=== PATIENT | female | born 1950 | race Caucasian/White ===

== ENCOUNTER 2018-06-17 14:31 | Emergency (ER) | payer SELFPAY | END 2018-06-17 15:07 | disposition home or self-care (01) | LOC: ERS 14:31 | DX: G62.9 Polyneuropathy, unspecified (principal); F17.210 Nicotine dependence, cigarettes, uncomplicated | CPT/HCPCS: 99283 ==

== ENCOUNTER 2018-09-09 12:06 | Emergency (ER) | payer SELFPAY ==
[2018-09-09 13:11] LABS: #Lymphocytes 0.5 thou/uL (1.20-3.40); #Monocytes 0.3 thou/uL (0.11-0.59); #Neutrophils 4.5 thou/uL (1.40-6.50); %Basophils 0.4 % (0.0-1.0); %Eosinophils 0.1 % (0.0-10.0); %Lymphocytes 9.3 % (21.0-51.0); %Monocytes 5.1 % (0.0-10.0); %Neutrophils 85.1 % (42.0-75.0); Hemoglobin 13.4 g/dL (12.0-16.0); Mean Corpuscular Hemoglobin 32.5 pg (27.0-31.0); Mean Corpuscular Volume 95.8 fL (78.0-98.0); Mean Platelet Volume 6.6 fL (7.4-10.4); Platelet Count 377 thou/uL (130-400); RBC Distribution Width 14.7 % (11.5-14.5); Red Blood Cell (RBC) Count 4.11 mill/uL (4.20-5.40); White Blood Cell (WBC) Count 5.3 thou/uL (4.8-10.8)
[2018-09-09] MEDS ORDERED: Morphine 4 MG/ML VIAL ONE ×2 (13:26→13:44)
[2018-09-09] MEDS ORDERED: Nitroglycerin 0.4 MG TAB 1 EACH ONE (13:33)
[2018-09-09 13:37] LABS: ALT (SGPT) 9 U/L (8-55); AST (SGOT) 14 U/L (5-34); Albumin 3.9 g/dL (3.4-4.8); Alkaline Phosphatase 72 U/L (40-150); Anion Gap 16 mmol/L (10-20); BUN (Urea Nitrogen) 18 mg/dL (9.8-20.1); Bilirubin, Total 0.5 mg/dL (0.2-1.2); CK (CPK) 35 U/L (29-168); Calc. Creatinine Clearance 0 mL/min (70-130); Calcium 10.7 mg/dL (7.8-10.44); Carbon Dioxide 21 mmol/L (23-31); Chloride 105 mmol/L (98-107); Estimated GFR-MDRD 55; Globulin 2.7 g/dL (2.4-3.5); Glucose 137 mg/dL (80-115); Lipase 25 U/L (8-78); Potassium 4.3 mmol/L (3.5-5.1); Protein, Total 6.6 g/dL (6.0-8.3); Sodium 138 mmol/L (136-145)
[2018-09-09] MEDS ORDERED: ISOVUE-370 76%-LOCM 1 ML ONE (13:41)
--- NOTE | 2018-09-09 14:31 | RAD ---
PORTABLE AP CHEST: Date: 09/09/18 HISTORY: Chest pain. COMPARISON: None available. FINDINGS: There is mild elevation of the left hemidiaphragm. Cardiac silhouette and pulmonary vasculature are w ithin normal limits. Linear densities are seen at the left lung base, which may be related to mild at electasis. There is mild patient rotation to the left, but no consolidation is seen and lungs are oth erwise clear. Degenerative changes are noted in the spine. IMPRESSION: No acute cardiopulmonary process. POS: INGRID
[2018-09-09] MEDS ORDERED: Piperacillin/Tazobactam 4.5 GM VIAL ONE (15:52)
[2018-09-09] MEDS ORDERED: Fentanyl 100 MCG/2 ML VIAL ONE (15:52)
--- NOTE | 2018-09-09 15:58 | CT ---
CTA CHEST WITH CONTRAST AND 3D VOLUME RENDERING: Date: 09/09/18 CLINICAL HISTORY: Chest pain. FINDINGS: There is no large, central pulmonary embolus identified. The thoracic aorta is nonaneurysmal. There i s abnormal opacification involving the left lower lobe bronchial tree which could relate to inspissat ed secretions. There is mild interstitial and ground-glass opacity of the adjacent left lower lobe pa renchyma, as well. No effusion or pneumothorax. There is evidence of free air incompletely visualized . There is dissection of air into the mediastinum as well. Marked thickening of the distal esophageal wall. There is pulmonary emphysema. Osseous degenerative changes are present. There is incidental note of a hypodensity of the spleen, incompletely evaluated. IMPRESSION: 1. Abnormal air density indicative of pneumoperitoneum with involvement of the imaged mediastinum as well. This does approximate a region of significant abnormal wall thickening of the distal esophagus , and therefore this could relate to erosion of an esophageal mass; however, the etiology of the free air is not definitively discerned on the basis of this CT chest exam. Recommend surgical consultatio n. 2. No pulmonary embolus. 3. Abnormal opacification of left lower lobe bronchi. This favors inspissated/inhaled secretions. An adjacent multifocal interstitial opacity of the left lower lobe may relate to associated bronchopneu monia. Telephone call findings placed to ER physician, Corey Alcantara, at 1434 hours on 09/09/18. CODE CR. POS: TPC
== END 2018-09-09 16:16 | disposition short-term general hospital (02) ==
LOC: ERS 12:06
DX: J98.2 Interstitial emphysema (principal); K66.9 Disorder of peritoneum, unspecified; K22.8 Other specified diseases of esophagus; G62.9 Polyneuropathy, unspecified; F17.210 Nicotine dependence, cigarettes, uncomplicated
CPT/HCPCS: 36415; 71045; 71275; 80053; 82550; 83690; 83880; 84484; 85025; 85379; 93005; 96361; 96374; 96375; 99292; J2270; J2543; J3010; Q9966

== ENCOUNTER 2018-09-29 09:54 | Observation (INO) | payer MEDICARE, SELFPAY ==
[2018-09-29 11:14] LABS: #Lymphocytes 1.1 thou/uL (1.20-3.40); #Monocytes 0.6 thou/uL (0.11-0.59); #Neutrophils 5.3 thou/uL (1.40-6.50); %Basophils 0.6 % (0.0-1.0); %Eosinophils 0.4 % (0.0-10.0); %Lymphocytes 15.5 % (21.0-51.0); %Monocytes 8.9 % (0.0-10.0); %Neutrophils 74.6 % (42.0-75.0); Hemoglobin 10.2 g/dL (12.0-16.0); Mean Corpuscular HGB CONC 32.5 g/dL (32.0-36.0); Mean Corpuscular Hemoglobin 30.2 pg (27.0-31.0); Mean Corpuscular Volume 92.9 fL (78.0-98.0); Mean Platelet Volume 6.3 fL (7.4-10.4); Platelet Count 476 thou/uL (130-400); RBC Distribution Width 15.7 % (11.5-14.5); Red Blood Cell (RBC) Count 3.36 mill/uL (4.20-5.40); White Blood Cell (WBC) Count 7.1 thou/uL (4.8-10.8)
[2018-09-29 11:42] LABS: ALT (SGPT) 8 U/L (8-55); AST (SGOT) 15 U/L (5-34); Albumin 3.5 g/dL (3.4-4.8); Alkaline Phosphatase 93 U/L (40-150); Anion Gap 16 mmol/L (10-20); BUN (Urea Nitrogen) 13 mg/dL (9.8-20.1); Bilirubin, Total 0.5 mg/dL (0.2-1.2); Calc. Creatinine Clearance 0 mL/min (70-130); Calcium 9.1 mg/dL (7.8-10.44); Carbon Dioxide 22 mmol/L (23-31); Chloride 104 mmol/L (98-107); Estimated GFR-MDRD 56; Globulin 3.5 g/dL (2.4-3.5); Glucose 108 mg/dL (80-115); Lipase 56 U/L (8-78); Potassium 3.9 mmol/L (3.5-5.1); Sodium 138 mmol/L (136-145)
[2018-09-29 12:00] LABS: CKMB 0.6 ng/mL (0-6.6)
--- NOTE | 2018-09-29 12:41 | CT ---
Exam: CTA of the chest HISTORY: Shortness of breath COMPARISON: 09/09/2018 TECHNIQUE: Multiple contiguous axial images were obtained a CTA of the chest with contrast per pulmon spring embolism protocol. 3-D oblique MIP reformats and direct coronal reformats were performed. FINDINGS: HEART: Normal in size without focal cardiac abnormality. PULMONARY ARTERIES: Normal in caliber without filling defects to suggest pulmonary emboli. MEDIASTINUM: No hilar or mediastinal lymphadenopathy. LUNGS: No focal infiltrates or masses. PLEURAL SPACE: There is a small left pleural effusion with adjacent atelectasis.. CHEST WALL SOFT TISSUES: Unremarkable VISUALIZED OSSEOUS STRUCTURES: Degenerative changes are seen in the spine. VISUALIZED SUBDIAPHRAGMATIC STRUCTURES: There is hypodensity in the posterior aspect of the spleen ex tending to the splenic hilum. Fluid is seen surrounding the spleen and this may represent a splenic laceration. The other visualized subdiaphragmatic structures are unremarkable. IMPRESSION: 1. No evidence of pulmonary thromboembolism 2. Left pleural effusion with adjacent atelectasis 3. Splenic laceration
[2018-09-29] MEDS ORDERED: Nitroglycerin 2% Ointment 1 INCH/1 GM Packet ONE (13:26)
[2018-09-29] MEDS ORDERED: Aspirin Chewable 81 MG TAB ONE (13:26)
--- NOTE | 2018-09-29 15:41 | HP ---
[facility] [place] Call Admission for [facility]. Referred to [facility] Hospitalist Service by [facility] for chest pain. The patient with a recent esophageal rupture, status post transfer to [facility] for surgical revision, came into the emergency room to have her sofia out, and the sofia were coming out. She said by the way, I have been having chest pain. This chest pain has been going on for a few days. It comes and goes. Lasts maybe 5 minutes, occurs 25 to 40 times a day. She states it feels like her heart is being squeezed by hand from inside. She has no nausea and no real shortness of breath. No sweats. No radiation. PAST MEDICAL HISTORY: Chronic pain from 3 failed back surgery, first in 1995, last in 2003. She has also had a hysterectomy, and as mentioned before, a recent esophageal repair. CURRENT MEDICATIONS: She takes ibuprofen for her back pain, but currently is taking nothing per the request of her [facility] doctors. ALLERGIES: SHE IS ALLERGIC TO ELAVIL. SHE STATES IT GIVES HER HIVES. FAMILY HISTORY: Father with diabetes and coronary artery disease. Mother with coronary artery disease. SOCIAL HISTORY: . Next of kin, Yudith Chapman. The patient requests to be DNAR. She smokes about a pack a day. Her alcohol history is equivocal, but from our old chart it states she has 5 drinks a day. REVIEW OF SYSTEMS: GENERAL: She says she has migraine headaches daily. She has some visual disturbance with the headaches. She has dizziness occasionally which resolves quickly. No history of fainting. She has occasional blurred vision. Occasional flashing lights in her vision with headaches. Both of these occur with headaches. EAR, NOSE, AND THROAT: No ear pain or drainage. No nasal bleeding. No trouble swallowing currently. CARDIAC: See present illness. No pressure chest pain or orthopnea. RESPIRATIONS: She has occasional smoker's cough. No wheezing or asthma. GASTROINTESTINAL: She has had a little nausea past few days. No vomiting. No abdominal pain. No diarrhea. GENITOURINARY: No hematuria or dysuria. MUSCULOSKELETAL: She relates pain in her thighs bilaterally, relates to her back problem. No history of swelling. NEUROLOGICAL: No strokes, seizures, or focal weakness. PSYCHIATRIC: She says that her doctor told her she was nuts one time, but she went to a psychiatrist who told her she was no crazy than she was (no comment). SKIN: No bruises, bleeding, or rash. HEME/LYMPH: No tender or swollen lymph nodes in the axilla, inguinal, or cervical area. PHYSICAL EXAMINATION: VITAL SIGNS: Blood pressure 142/93, pulse 95, respirations 17. She relates her chest pain is 8 to 10, but her affect demonstrates less than one chest pain, O2 saturation 97 on room air. HEENT: Examination of her head, eyes, ears, nose, and throat reveals pupils are equal, round, and reactive to light. Extraocular movements are intact. Sclerae are white. Tympanic membranes clear. Nose clear. Oral mucous membranes are wet. Dental hygiene is adequate. She has best I can guess about half of her original teeth. NECK: No jugular venous distention, adenopathy, or thyromegaly. CHEST: Clear to auscultation and percussion. HEART: Regular rate and rhythm. First and second heart sounds clear. No murmurs or gallops. ABDOMEN: Soft. Bowel sounds are normal. There is no hepatosplenomegaly. No mass. No rebound. No bruits. EXTREMITIES: Reveal no cyanosis, clubbing, or edema. PULSES: Carotid, radial, femoral, and dorsalis pedis pulses intact. SKIN: Warm and dry without bruises or rash. HEME/LYMPH: No tender or swollen lymph nodes in the axilla or inguinal cervical area. Deep tendon reflexes, not tested. Moves all extremities. Cranial nerves 2 through 12 are intact. DIAGNOSTIC DATA: EKG, mild sinus tachycardia, otherwise normal, reviewed by me. Chest x-ray reveals no cardiomegaly, CHF, infiltrate, reviewed by me. CT scan of the chest done because of recent surgery, esophageal rupture, etc. Reveals no evidence of pulmonary thromboembolism. Mild left pleural effusion. Question of a splenic laceration. Comprehensive metabolic profile unremarkable. Troponin 0.033. CBC; white cell count 7.1, hemoglobin 10.2, platelet count 476,000. ADMITTING DIAGNOSES: 1. Chest pain. 2. Question of splenic laceration, post-esophageal repair, which was apparently an abdominal thoracic procedure, and chronic back pain. PLAN: She has received aspirin, serial cardiac enzymes, probable stress test. The evidence for splenic laceration will have to be reviewed. Probable General Surgery consult. Job ID: [id number]
[2018-09-29 16:19] VITALS: BMI 19.9
[2018-09-29] MEDS ORDERED: Ondansetron ODT 4 MG TAB SL PRN (16:45)
[2018-09-29] MEDS ORDERED: Acetaminophen 325 MG TAB PO PRN (16:45)
[2018-09-29] MEDS ORDERED: Ondansetron PF 4 MG/2 ML Vial IVP PRN (16:45)
--- NOTE | 2018-09-29 16:48 | PDOC.EVN ---
Event Note - Event Note Event Note: discussed recent surgery and CT scan of abd with general surgery, considered safe for stress test
[2018-09-29] MEDS ORDERED: Cyclobenzaprine 10 MG TAB PO PRN (21:11)
[2018-09-29] MEDS ORDERED: Gabapentin 300 MG CAP PO SCH (21:30)
[2018-09-30] MEDS ORDERED: Sodium Chloride 0.65% Nasal 44 ML BOT EA NARE PRN (08:45)
[2018-09-30] MEDS ORDERED: Ondansetron PF 4 MG/2 ML Vial IVP PRN (08:45)
[2018-09-30] MEDS ORDERED: hydrALAZINE 20 MG/ML VIAL SLOW IVP PRN (08:45)
[2018-09-30] MEDS ORDERED: Artificial Tears 18 DROP/0.9 ML EA EYE PRN (08:45)
[2018-09-30] MEDS ORDERED: traMADol HCl 50 MG TAB PO PRN (08:45)
[2018-09-30] MEDS ORDERED: Eucerin (Mineral Oil/Petrolatum,White) 30 gm Jar TOP PRN (08:45)
[2018-09-30] MEDS ORDERED: Ondansetron ODT 4 MG TAB SL PRN (08:45)
[2018-09-30] MEDS ORDERED: Cepastat Lozenges 1 LOZ PO PRN (08:45)
[2018-09-30] MEDS ORDERED: Zolpidem Tartrate 5 MG TAB PO PRN (08:45)
[2018-09-30] MEDS ORDERED: Diabetic Tussin 200 MG/10 ML UDCUP PO PRN (08:45)
[2018-09-30] MEDS ORDERED: Loratadine 10 MG TAB PO PRN (08:45)
[2018-09-30] MEDS ORDERED: Loperamide HCl 2 MG CAP PO PRN (08:45)
[2018-09-30] MEDS ORDERED: HYDROcodone/Acetaminophen 5/325 mg Tablet PO PRN (08:45)
[2018-09-30] MEDS ORDERED: Docusate 100 MG CAP PO SCH (09:00)
[2018-09-30] MEDS ORDERED: Aspirin 325 mg Enteric Coated Tablet PO SCH (09:00)
[2018-09-30] MEDS: Gabapentin 300 MG CAP PO SCH ×2 (10:38→12:53)
--- NOTE | 2018-09-30 12:38 | PDOC.PN ---
- Subjective Encounter Start Date: 09/30/18 Encounter Start Time: 07:40 Patient seen and examined. No new complaints. No overnight events - Objective Resuscitation Status - Order Detail: 09/29/18 14:01 Resuscitation Status Routine Resuscitation Status: DNAR: NO Resuscitation Discussed with: patient Additional comments: next of kin-sister Yudith HUMPHREY Reviewed: Yes Vital Signs & Weight: Vital Signs (12 hours) Temp Pulse Resp BP BP Pulse Ox 09/30/18 07:38 97.4 F L 86 16 128/73 95 09/30/18 06:10 96 09/30/18 04:11 98.0 F 85 16 131/76 95 Weight Weight 131 lb 4 oz I&O: 09/29/18 09/30/18 10/01/18 06:59 06:59 06:59 Intake Total 720 Output Total 350 Balance 370 Result Diagrams: 09/29/18 11:04 09/29/18 11:04 EKG Reviewed by me: Yes Phys Exam - Physical Examination Constitutional: NAD HEENT: PERRLA, moist MMs, sclera anicteric Neck: no JVD, supple Respiratory: no wheezing, no rales, no rhonchi Cardiovascular: RRR, no significant murmur, no rub Gastrointestinal: soft, non-tender, no distention, positive bowel sounds Musculoskeletal: no edema, pulses present Neurological: non-focal, normal sensation, moves all 4 limbs Lymphatic: no nodes Psychiatric: normal affect, A&O x 3 Skin: no rash, normal turgor Dx/Plan (1) Chest pain Code(s): R07.9 - CHEST PAIN, UNSPECIFIED Status: Acute (2) Laceration of spleen Code(s): S36.039A - UNSPECIFIED LACERATION OF SPLEEN, INITIAL ENCOUNTER Status : Acute (3) Anemia, normocytic normochromic Code(s): D64.9 - ANEMIA, UNSPECIFIED Status: Chronic (4) GERD (gastroesophageal reflux disease) Code(s): K21.9 - GASTRO-ESOPHAGEAL REFLUX DISEASE WITHOUT ESOPHAGITIS Status: Chronic - Plan cont current plan of care * medication reviewed as below * symptomatic treatment * stress test result pending. Review of Systems - Review of Systems ENT: negative: Ear Pain, Ear Discharge, Nose Pain, Nose Discharge, Nose Congestion, Mouth Pain, Mouth Swelling, Throat Pain, Throat Swelling, Other Respiratory: negative: Cough, Dry, Shortness of Breath, Hemoptysis, SOB with Excertion, Pleuritic Pain, Sputum, Wheezing Cardiovascular: negative: chest pain, palpitations, orthopnea, paroxysmal nocturnal dyspnea, edema, light headedness, other Gastrointestinal: negative: Nausea, Vomiting, Abdominal Pain, Diarrhea, Constipation, Melena, Hematochezia, Other Genitourinary: negative: Dysuria, Frequency, Incontinence, Hematuria, Retention , Other Musculoskeletal: negative: Neck Pain, Shoulder Pain, Arm Pain, Back Pain, Hand Pain, Leg Pain, Foot Pain, Other - Medications/Allergies Allergies/Adverse Reactions: Allergies Allergy/AdvReac Type Severity Reaction Status Date / Time amitriptyline [From [facility]] Allergy Verified 09/29/18 14:45 Medications: Current Medications Hydrocodone Bitart/Acetaminophen ([place] 5/325) 1 tab PO Q4H PRN PRN Reason: Moderate Pain (4-6) Artificial Tears (Tears Naturale) 2 drop EA EYE PRN PRN PRN Reason: Dry Eyes Aspirin (Ecotrin) 325 mg PO DAILY [facility] Last Admin: 09/30/18 10:38 Dose: Not Given Cyclobenzaprine HCl (Flexeril) 5 mg PO Q6H PRN PRN Reason: .PAIN Docusate Sodium (Colace) 100 mg PO BID [facility] Last Admin: 09/30/18 10:38 Dose: Not Given Gabapentin (Neurontin) 300 mg PO TID [facility] Last Admin: 09/30/18 10:38 Dose: Not Given Guaifenesin (Robitussin Sf) 200 mg PO Q4H PRN PRN Reason: Cough Hydralazine HCl (Apresoline) 10 mg SLOW IVP Q4H PRN PRN Reason: SBP > 180 and HR < 70 Loperamide HCl (Imodium) 2 mg PO PRN PRN PRN Reason: Diarrhea/Loose Stools Loratadine (Claritin) 10 mg PO DAILYPRN PRN PRN Reason: Sinus Symptoms Mineral Oil/White Petrolatum (Eucerin Cream) 0 gm TOP BIDPRN PRN PRN Reason: Dry Skin Ondansetron HCl (Zofran Odt) 4 mg SL Q6H PRN PRN Reason: Nausea/Vomiting Ondansetron HCl (Zofran) 4 mg IVP Q6H PRN PRN Reason: Nausea/Vomiting Pantoprazole Sodium (Protonix) 40 mg PO BID [facility] Last Admin: 09/30/18 10:38 Dose: Not Given Sodium Chloride ([place] Nasal [place] 0.65%) 0 ml EA NARE QIDPRN PRN PRN Reason: Nasal Congestion Throat Lozenges (Cepastat Lozenges) 1 freddy PO Q2H PRN PRN Reason: Sore Throat Tramadol HCl (Ultram) 50 mg PO Q6H PRN PRN Reason: Mild Pain (1-3) Zolpidem Tartrate (Ambien) 5 mg PO HSPRN PRN PRN Reason: Insomnia
--- NOTE | 2018-09-30 13:36 | NM ---
NM Cardiac Stress W EF WF HISTORY: Chest pain TECHNIQUE: A myocardial perfusion scan was performed using the single isotope 1 day protocol with rosario hnetium 99m sestamibi. 10 mCi was injected intravenously for the rest exam followed by 30 mCi for the stress study. Pharmacologic stress with adenosine was monitored and interpreted by Lukasz Finch NP FINDINGS: Homogeneous tracer distribution is seen in the myocardial segments on stress and rest image s without fixed or reversible defects. Gated SPECT LVEF: 62 % Wall motion exam: Normal IMPRESSION: Normal myocardial perfusion scan.
--- NOTE | 2018-09-30 14:10 | DIS ---
DATE OF ADMISSION: 09/29/2018 DATE OF DISCHARGE: 09/30/2018 PRIMARY CARE PHYSICIAN: [facility] Call admission. DISCHARGE DISPOSITION: Home. PRIMARY DISCHARGE DIAGNOSES: Chest pain ruled out, acute coronary syndrome. SECONDARY DISCHARGE DIAGNOSES: Gastroesophageal reflux disease, normocytic normochromic anemia. PRIMARY PROCEDURE/OPERATION: None. RADIOLOGICAL INVESTIGATION: CT angiography negative for PE, but it showed a suspected finding of splenic laceration. Stress test was negative. SIGNIFICANT LABORATORY DATA: WBC 7.1, hemoglobin 10.2, platelet 476. Sodium 138, potassium 3.9, BUN 13, creatinine 0.99, calcium 9.1. Troponin 0.025. LFT normal. Lipase 56. DISCHARGE MEDICATION: 1. Colace 100 mg b.i.d. 2. Gabapentin 300 mg t.i.d. 3. Protonix 40 mg b.i.d. 4. Tramadol 50 mg q.6 hourly p.r.n. 5. Flexeril 5 mg q.6 hourly p.r.n. CONTRAINDICATION: None. CODE STATUS: DNR. INPATIENT SCREENING NURSE: None. ALLERGY: Amitriptyline. DISCHARGE PLAN: Posthospital, the patient will follow up with primary care physician in one week. HOSPITAL COURSE: A 68-year-old female with above-mentioned medical problem, who was admitted by Dr. Thompson. Please see his H and P for further details. The patient presented with chest pain. Her chest pain description was atypical. Her D-dimer was elevated and that is why CT angiography PE protocol was done, which was negative for PE. There was suspected finding of a splenic laceration, but clinically this patient was not having any pain in left upper quadrant and she was not complaining any abdominal discomfort. Her physical examination was completely benign. We did stress test and that came back normal. Couple of troponin was indeterminate, but 3rd troponin was negative. The patient was subsequently chest pain free and her telemetry remained unremarkable. The patient was seen and examined at bedside today. Please see my progress note from today for further details. She is medically stable for discharge today and so we will make appointment with primary care physician. Job ID: [id number]
[2018-09-30 15:59] VITALS: BP 154/84; TEMP 97.7
[2018-09-30] MEDS ORDERED: ADENOSINE 60 MG/20 ML VIAL ONE (16:38)
== END 2018-09-30 16:20 | disposition home or self-care (01) ==
LOC: ERS 09:54 → ERHOLD 14:00 → 2SW 16:06
PROVIDERS: ADMIT Internal Medicine; ATTEND Internal Medicine
DX: R07.89 Other chest pain (principal); K21.9 Gastro-esophageal reflux disease without esophagitis; D64.9 Anemia, unspecified; F17.210 Nicotine dependence, cigarettes, uncomplicated; S36.039A Unspecified laceration of spleen, initial encounter; Z88.8 Allergy status to other drugs, medicaments and biological substances; Z66 Do not resuscitate; Z98.890 Other specified postprocedural states
CPT/HCPCS: 71275; 78452; 80053; 82553; 83690; 84484 ×2; 85025; 93005; 93017; 94760 ×2; 99285; A9500; G0378 ×2; 36415; J0153

== ENCOUNTER 2020-04-16 13:16 | Emergency (ER) | payer MEDICARE ==
[2020-04-16] MEDS ORDERED: Ibuprofen 200 MG TAB ONE (13:43)
== END 2020-04-16 14:34 | disposition home or self-care (01) ==
LOC: ERS 13:16
DX: I10 Essential (primary) hypertension (principal); M54.9 Dorsalgia, unspecified; Z71.6 Tobacco abuse counseling; F17.210 Nicotine dependence, cigarettes, uncomplicated; Z79.899 Other long term (current) drug therapy
CPT/HCPCS: 93005; 99406

== ENCOUNTER 2020-12-10 08:10 | Inpatient (IN) | payer MEDICARE ==
[2020-12-10] MEDS ORDERED: Ondansetron PF 4 MG/2 ML Vial ONE (09:28)
[2020-12-10] MEDS ORDERED: Morphine 4 MG/ML VIAL ONE ×2 (09:28→09:51)
[2020-12-10] MEDS ORDERED: Ondansetron ODT 4 MG TAB ONE (09:51)
[2020-12-10 10:03] LABS: #Eosinphils 0.1 thou/uL (0.0-0.7); #Lymphocytes 1.2 thou/uL (1.20-3.40); #Monocytes 0.4 thou/uL (0.11-0.59); #Neutrophils 5.1 thou/uL (1.40-6.50); %Basophils 0.6 % (0.0-1.0); %Eosinophils 0.7 % (0.0-10.0); %Lymphocytes 18.1 % (21.0-51.0); %Monocytes 6.5 % (0.0-10.0); %Neutrophils 74.2 % (42.0-75.0); Hemoglobin 16.4 g/dL (12.0-16.0); Mean Corpuscular HGB CONC 33.6 g/dL (32.0-36.0); Mean Corpuscular Hemoglobin 33.3 pg (27.0-31.0); Mean Platelet Volume 7.4 fL (7.4-10.4); Platelet Count 187 thou/uL (130-400); RBC Distribution Width 12.6 % (11.5-14.5); Red Blood Cell (RBC) Count 4.92 mill/uL (4.20-5.40); White Blood Cell (WBC) Count 6.8 thou/uL (4.8-10.8)
[2020-12-10 10:25] LABS: Anion Gap 18 mmol/L (10-20); BUN (Urea Nitrogen) 18 mg/dL (9.8-20.1); Calc. Creatinine Clearance 0 mL/min (70-130); Calcium 9.5 mg/dL (7.8-10.44); Carbon Dioxide 16 mmol/L (23-31); Chloride 106 mmol/L (98-107); Glucose 98 mg/dL (80-115); Potassium 3.8 mmol/L (3.5-5.1); Sodium 136 mmol/L (136-145)
[2020-12-10 10:25] LABS: Bilirubin Negative (Negative); Blood, Urine 1+ (Negative); Clarity Clear (Clear); Glucose, Urine (Dipstick) Normal (Negative); Ketone, Urine 20 mg/dL (Negative); Leukocyte 75 Leu/uL (Negative); Nitrite Negative (Negative); Protein, Urine (Dipstick) 20 mg/dL (Neg-Trace); Specific Gravity, Urine 1.026 (1.002-1.036); Squamous Epithelial 0-3 HPF (0-3); Urobilinogen Normal mg/dL (Less than 2); pH, Urine 5.5 (5.0-9.0)
[2020-12-10 10:30] LABS: Bacteria/HPF 1+ HPF (None Seen)
[2020-12-10 11:44] LABS: CKMB 13.3 ng/mL (0-6.6)
[2020-12-10] MEDS ORDERED: cefTRIAXone\\ROCEPHIN 1 GM VIAL ONE (12:22)
[2020-12-10] MEDS ORDERED: Aspirin 325 MG TAB ONE (12:22)
[2020-12-10 13:05] LABS: Lactic Acid 2.1 mmol/L (0.5-2.2)
[2020-12-10] MEDS ORDERED: Pantoprazole 40 MG VIAL IVP SCH (15:00)
[2020-12-10 15:06] LABS: Troponin I 0.097 ng/mL (< 0.028)
[2020-12-10 16:49] VITALS: BMI 23.1
[2020-12-10] MEDS: Cyclobenzaprine 10 MG TAB PO PRN (17:08)
[2020-12-10 17:20] LABS: Troponin I 0.097 ng/mL (< 0.028)
[2020-12-10] MEDS: Nicotine 14 MG PATCH TD SCH (17:58)
[2020-12-10] MEDS ORDERED: Gabapentin 300 MG CAP PO SCH (21:00)
[2020-12-10] MEDS: Pantoprazole 40 MG VIAL IVP SCH (21:25)
[2020-12-11 04:47] LABS: Hemoglobin 14.7 g/dL (12.0-16.0); Mean Corpuscular HGB CONC 32.6 g/dL (32.0-36.0); Mean Corpuscular Hemoglobin 32.9 pg (27.0-31.0); Mean Platelet Volume 7.4 fL (7.4-10.4); Platelet Count 183 thou/uL (130-400); RBC Distribution Width 12.6 % (11.5-14.5); Red Blood Cell (RBC) Count 4.46 mill/uL (4.20-5.40); White Blood Cell (WBC) Count 5.7 thou/uL (4.8-10.8)
[2020-12-11 05:14] LABS: Anion Gap 9 mmol/L (10-20); BUN (Urea Nitrogen) 18 mg/dL (9.8-20.1); Calc. Creatinine Clearance 57 mL/min (70-130); Calcium 8.6 mg/dL (7.8-10.44); Carbon Dioxide 23 mmol/L (23-31); Chloride 111 mmol/L (98-107); Glucose 98 mg/dL (80-115); Potassium 3.8 mmol/L (3.5-5.1); Sodium 139 mmol/L (136-145)
[2020-12-11] MEDS: Pantoprazole 40 MG VIAL IVP SCH ×2 (09:30→21:28)
[2020-12-11] MEDS: Cyclobenzaprine 10 MG TAB PO PRN ×2 (09:30→18:09)
[2020-12-11] MEDS: Gabapentin 100 MG CAP PO SCH (09:30)
[2020-12-11] MEDS: cefTRIAXone\\ROCEPHIN 1 GM in Sodium Chloride 0.9% 100 ML IVPB SCH (11:46)
[2020-12-11] MEDS: Nicotine 14 MG PATCH TD SCH (18:05)
[2020-12-11] MEDS: traMADol HCl 50 MG TAB PO PRN (21:27)
[2020-12-12 05:12] LABS: #Eosinphils 0.2 thou/uL (0.0-0.7); #Lymphocytes 1.5 thou/uL (1.20-3.40); #Monocytes 0.5 thou/uL (0.11-0.59); %Basophils 0.7 % (0.0-1.0); %Eosinophils 4.2 % (0.0-10.0); %Lymphocytes 27.9 % (21.0-51.0); %Monocytes 9.6 % (0.0-10.0); %Neutrophils 57.6 % (42.0-75.0); Hemoglobin 13.4 g/dL (12.0-16.0); Mean Corpuscular Hemoglobin 33.2 pg (27.0-31.0); Mean Platelet Volume 7.5 fL (7.4-10.4); Platelet Count 202 thou/uL (130-400); RBC Distribution Width 12.6 % (11.5-14.5); Red Blood Cell (RBC) Count 4.05 mill/uL (4.20-5.40); White Blood Cell (WBC) Count 5.2 thou/uL (4.8-10.8)
[2020-12-12 05:35] LABS: Anion Gap 12 mmol/L (10-20); BUN (Urea Nitrogen) 20 mg/dL (9.8-20.1); Calc. Creatinine Clearance 52 mL/min (70-130); Calcium 8.8 mg/dL (7.8-10.44); Carbon Dioxide 21 mmol/L (23-31); Chloride 111 mmol/L (98-107); Glucose 113 mg/dL (80-115); Potassium 3.8 mmol/L (3.5-5.1); Sodium 140 mmol/L (136-145)
[2020-12-12] MEDS: Cyclobenzaprine 10 MG TAB PO PRN ×2 (05:47→20:34)
[2020-12-12] MEDS: Gabapentin 100 MG CAP PO SCH (09:20)
[2020-12-12] MEDS: Pantoprazole 40 MG VIAL IVP SCH ×2 (09:20→20:33)
[2020-12-12] MEDS: traMADol HCl 50 MG TAB PO PRN ×2 (09:21→20:34)
[2020-12-12] MEDS: cefTRIAXone\\ROCEPHIN 1 GM in Sodium Chloride 0.9% 100 ML IVPB SCH (11:55)
[2020-12-12] MEDS: Nicotine 14 MG PATCH TD SCH (16:52)
[2020-12-12 17:47] LABS: SARS-CoV-2 NAA Rapid Test Not Detected (NotDetected)
[2020-12-13] MEDS: Gabapentin 100 MG CAP PO SCH (08:54)
[2020-12-13] MEDS: Pantoprazole 40 MG VIAL IVP SCH ×2 (08:55→20:01)
[2020-12-13] MEDS: Cyclobenzaprine 10 MG TAB PO PRN ×2 (09:04→20:01)
[2020-12-13] MEDS: cefTRIAXone\\ROCEPHIN 1 GM in Sodium Chloride 0.9% 100 ML IVPB SCH (11:33)
[2020-12-13] MEDS: traMADol HCl 50 MG TAB PO PRN (18:13)
[2020-12-13] MEDS: Nicotine 14 MG PATCH TD SCH (18:14)
[2020-12-14] MEDS: Cyclobenzaprine 10 MG TAB PO PRN ×2 (05:43→21:03)
[2020-12-14] MEDS: traMADol HCl 50 MG TAB PO PRN ×3 (05:43→21:04)
[2020-12-14] MEDS: Pantoprazole 40 MG VIAL IVP SCH ×2 (09:00→21:03)
[2020-12-14] MEDS: Gabapentin 100 MG CAP PO SCH (09:00)
[2020-12-14] MEDS: cefTRIAXone\\ROCEPHIN 1 GM in Sodium Chloride 0.9% 100 ML IVPB SCH (12:21)
[2020-12-14 14:58] LABS: Anion Gap 17 mmol/L (10-20); BUN (Urea Nitrogen) 16 mg/dL (9.8-20.1); Calc. Creatinine Clearance 61 mL/min (70-130); Calcium 9.3 mg/dL (7.8-10.44); Carbon Dioxide 17 mmol/L (23-31); Chloride 109 mmol/L (98-107); Glucose 127 mg/dL (80-115); Potassium 5.2 mmol/L (3.5-5.1); Sodium 138 mmol/L (136-145)
[2020-12-14] MEDS ORDERED: Bisacodyl 5 MG TAB PO SCH (15:45)
[2020-12-14 16:13] LABS: #Basophils 0.1 thou/uL (0.0-0.2); #Eosinphils 0.1 thou/uL (0.0-0.7); #Lymphocytes 1.5 thou/uL (1.20-3.40); #Monocytes 0.9 thou/uL (0.11-0.59); #Neutrophils 4.4 thou/uL (1.40-6.50); %Basophils 0.9 % (0.0-1.0); %Eosinophils 2.1 % (0.0-10.0); %Lymphocytes 21.4 % (21.0-51.0); %Monocytes 12.2 % (0.0-10.0); %Neutrophils 63.3 % (42.0-75.0); Hemoglobin 13.5 g/dL (12.0-16.0); Mean Corpuscular HGB CONC 34.7 g/dL (32.0-36.0); Mean Corpuscular Hemoglobin 34.3 pg (27.0-31.0); Mean Platelet Volume 6.9 fL (7.4-10.4); Platelet Count 214 thou/uL (130-400); RBC Distribution Width 12.3 % (11.5-14.5); Red Blood Cell (RBC) Count 3.93 mill/uL (4.20-5.40)
[2020-12-14] MEDS ORDERED: Albuterol Sulfate 2.5 mg/3 ml Neb NEB SCH (16:15)
[2020-12-14] MEDS: Nicotine 14 MG PATCH TD SCH (17:49)
[2020-12-14 18:35] LABS: Potassium 3.5 mmol/L (3.5-5.1)
[2020-12-15] MEDS: traMADol HCl 50 MG TAB PO PRN ×3 (06:07→19:46)
[2020-12-15] MEDS: Cyclobenzaprine 10 MG TAB PO PRN ×3 (06:07→19:46)
[2020-12-15] MEDS: Gabapentin 100 MG CAP PO SCH (09:32)
[2020-12-15] MEDS: Pantoprazole 40 MG VIAL IVP SCH ×2 (09:33→19:46)
[2020-12-15] MEDS: Bisacodyl 5 MG TAB PO PRN (09:34)
[2020-12-15] MEDS ORDERED: Gabapentin 100 MG CAP PO SCH (12:00)
[2020-12-15] MEDS: Nicotine 14 MG PATCH TD SCH (17:05)
[2020-12-15] MEDS: Gabapentin 300 MG CAP PO SCH (19:44)
[2020-12-16] MEDS: traMADol HCl 50 MG TAB PO PRN ×3 (05:32→21:08)
[2020-12-16] MEDS: Cyclobenzaprine 10 MG TAB PO PRN ×2 (05:32→21:07)
[2020-12-16] MEDS: Gabapentin 300 MG CAP PO SCH ×2 (09:03→21:08)
[2020-12-16] MEDS: Pantoprazole 40 MG VIAL IVP SCH ×2 (09:04→21:08)
[2020-12-16] MEDS ORDERED: Nitroglycerin 0.4 MG TAB (25 Tab Bottle) SL PRN (15:20)
[2020-12-16] MEDS ORDERED: Morphine 2 MG/ML VIAL SLOW IVP PRN (15:21)
[2020-12-16 16:06] LABS: Troponin I Less than 0.010 ng/mL (< 0.028)
[2020-12-16] MEDS ORDERED: Lidocaine 2% Viscous Solution 10 ML, Aluminum & Magnesium Hydroxide 30 ML SSW SCH (16:15)
[2020-12-16] MEDS: Nicotine 14 MG PATCH TD SCH (17:55)
[2020-12-16 19:42] LABS: Troponin I Less than 0.010 ng/mL (< 0.028)
[2020-12-17] MEDS: Cyclobenzaprine 10 MG TAB PO PRN ×2 (05:23→17:37)
[2020-12-17] MEDS: traMADol HCl 50 MG TAB PO PRN ×2 (05:23→17:38)
[2020-12-17 07:41] LABS: #Basophils 0.1 thou/uL (0.0-0.2); #Eosinphils 0.1 thou/uL (0.0-0.7); #Lymphocytes 1.3 thou/uL (1.20-3.40); #Monocytes 0.5 thou/uL (0.11-0.59); #Neutrophils 2.3 thou/uL (1.40-6.50); %Basophils 1.4 % (0.0-1.0); %Eosinophils 2.1 % (0.0-10.0); %Lymphocytes 30.5 % (21.0-51.0); %Monocytes 12.3 % (0.0-10.0); %Neutrophils 53.7 % (42.0-75.0); Hemoglobin 12.9 g/dL (12.0-16.0); Mean Corpuscular HGB CONC 33.7 g/dL (32.0-36.0); Mean Corpuscular Hemoglobin 33.7 pg (27.0-31.0); Mean Platelet Volume 6.8 fL (7.4-10.4); Platelet Count 327 thou/uL (130-400); Red Blood Cell (RBC) Count 3.81 mill/uL (4.20-5.40); White Blood Cell (WBC) Count 4.2 thou/uL (4.8-10.8)
[2020-12-17 08:00] LABS: Anion Gap 14 mmol/L (10-20); BUN (Urea Nitrogen) 24 mg/dL (9.8-20.1); Calc. Creatinine Clearance 56 mL/min (70-130); Calcium 9.5 mg/dL (7.8-10.44); Carbon Dioxide 26 mmol/L (23-31); Chloride 103 mmol/L (98-107); Glucose 89 mg/dL (80-115); Potassium 4.3 mmol/L (3.5-5.1); Sodium 139 mmol/L (136-145)
[2020-12-17] MEDS: Bisacodyl 5 MG TAB PO PRN (08:31)
[2020-12-17] MEDS: Gabapentin 300 MG CAP PO SCH ×2 (08:31→21:29)
[2020-12-17] MEDS: Pantoprazole 40 MG VIAL IVP SCH ×2 (08:32→21:29)
[2020-12-17] MEDS: Nicotine 14 MG PATCH TD SCH (17:37)
[2020-12-18 07:43] LABS: Anion Gap 20 mmol/L (10-20); BUN (Urea Nitrogen) 32 mg/dL (9.8-20.1); Calc. Creatinine Clearance 57 mL/min (70-130); Calcium 9.7 mg/dL (7.8-10.44); Carbon Dioxide 18 mmol/L (23-31); Chloride 103 mmol/L (98-107); Glucose 101 mg/dL (80-115); Potassium 4.7 mmol/L (3.5-5.1); Sodium 136 mmol/L (136-145)
[2020-12-18] MEDS: Gabapentin 300 MG CAP PO SCH ×2 (07:56→20:29)
[2020-12-18] MEDS: Pantoprazole 40 MG VIAL IVP SCH ×2 (07:59→08:04)
[2020-12-18 08:08] LABS: #Basophils 0.1 thou/uL (0.0-0.2); #Eosinphils 0.1 thou/uL (0.0-0.7); #Lymphocytes 1.8 thou/uL (1.20-3.40); #Monocytes 0.6 thou/uL (0.11-0.59); #Neutrophils 3.5 thou/uL (1.40-6.50); %Eosinophils 1.5 % (0.0-10.0); %Monocytes 9.5 % (0.0-10.0); Hemoglobin 14.3 g/dL (12.0-16.0); Mean Corpuscular HGB CONC 34.1 g/dL (32.0-36.0); Mean Corpuscular Hemoglobin 34.4 pg (27.0-31.0); Mean Platelet Volume 7.4 fL (7.4-10.4); Platelet Count 257 thou/uL (130-400); RBC Distribution Width 12.1 % (11.5-14.5); Red Blood Cell (RBC) Count 4.14 mill/uL (4.20-5.40)
[2020-12-18] MEDS: Cyclobenzaprine 10 MG TAB PO PRN (09:38)
[2020-12-18] MEDS: traMADol HCl 50 MG TAB PO PRN (09:38)
[2020-12-18] MEDS ORDERED: Polyethylene Glycol 3350 17 GM Packet PO PRN (10:12)
[2020-12-18] MEDS ORDERED: Magnesium Citrate 300 ML BOT PO SCH (16:30)
[2020-12-18] MEDS: Nicotine 14 MG PATCH TD SCH (16:59)
[2020-12-19 06:10] LABS: #Eosinphils 0.1 thou/uL (0.0-0.7); #Lymphocytes 1.3 thou/uL (1.20-3.40); #Monocytes 0.5 thou/uL (0.11-0.59); #Neutrophils 3.2 thou/uL (1.40-6.50); %Basophils 0.4 % (0.0-1.0); %Eosinophils 1.2 % (0.0-10.0); %Lymphocytes 25.8 % (21.0-51.0); %Monocytes 9.9 % (0.0-10.0); %Neutrophils 62.8 % (42.0-75.0); Hemoglobin 13.7 g/dL (12.0-16.0); Mean Corpuscular HGB CONC 33.9 g/dL (32.0-36.0); Mean Corpuscular Hemoglobin 33.5 pg (27.0-31.0); Mean Corpuscular Volume 98.7 fL (78.0-98.0); Mean Platelet Volume 6.6 fL (7.4-10.4); Platelet Count 347 thou/uL (130-400); RBC Distribution Width 12.1 % (11.5-14.5); Red Blood Cell (RBC) Count 4.08 mill/uL (4.20-5.40)
[2020-12-19 06:33] LABS: Anion Gap 15 mmol/L (10-20); BUN (Urea Nitrogen) 27 mg/dL (9.8-20.1); Calc. Creatinine Clearance 59 mL/min (70-130); Calcium 9.8 mg/dL (7.8-10.44); Carbon Dioxide 28 mmol/L (23-31); Chloride 101 mmol/L (98-107); Glucose 111 mg/dL (80-115); Sodium 139 mmol/L (136-145)
[2020-12-19] MEDS: Gabapentin 300 MG CAP PO SCH (08:15)
[2020-12-19 16:50] VITALS: BP 110/68; TEMP 97.6
[2020-12-19] MEDS: Nicotine 14 MG PATCH TD SCH (17:26)
== END 2020-12-19 19:00 | DRG 689 ==
LOC: ERS 08:10 → ERHOLD 12:29 → 2NO 16:21 → OBSVTOIN 12-12 15:54 → T4-A 12-12 19:37
PROVIDERS: ADMIT Internal Medicine; ATTEND Internal Medicine
DX: N39.0 Urinary tract infection, site not specified (principal); I21.A1 Myocardial infarction type 2; E87.2 Acidosis; G93.49 Other encephalopathy; M41.9 Scoliosis, unspecified; G89.29 Other chronic pain; E86.0 Dehydration; K27.9 Peptic ulcer, site unspecified, unspecified as acute or chronic, without hemorrhage or perforation; G62.9 Polyneuropathy, unspecified; R07.9 Chest pain, unspecified; R53.81 Other malaise; K21.9 Gastro-esophageal reflux disease without esophagitis; F03.90 Unspecified dementia, unspecified severity, without behavioral disturbance, psychotic disturbance, mood disturbance, and anxiety; Z20.822 Contact with and (suspected) exposure to COVID-19; F17.210 Nicotine dependence, cigarettes, uncomplicated; M54.9 Dorsalgia, unspecified; Z88.8 Allergy status to other drugs, medicaments and biological substances; Z79.899 Other long term (current) drug therapy
CPT/HCPCS: 36415; 51701; 70450; 71045; 72125; 72146; 72148; 80048; 81003; 81015; 82553; 83605; 84484; 85025; 85027; 87086; 93005; 93010; 93306; 94640; 96372; 96374; 96375; 96376; C9113; G0378; J0696; J2270; J2405; J3490; J7611; Q0162; U0002; U0005

== ENCOUNTER 2021-02-26 12:42 | Inpatient (IN) | payer MEDICARE ==
[~2021-02-26 12:42] MED LIST: Iopamidol-370 76% 500 ML 1 ML ONE
[2021-02-26 13:40] LABS: #Eosinphils 0.2 thou/uL (0.0-0.7); #Lymphocytes 1.3 thou/uL (1.20-3.40); #Monocytes 0.4 thou/uL (0.11-0.59); #Neutrophils 4.9 thou/uL (1.40-6.50); %Basophils 0.5 % (0.0-1.0); %Eosinophils 2.3 % (0.0-10.0); %Lymphocytes 19.6 % (21.0-51.0); %Monocytes 5.9 % (0.0-10.0); %Neutrophils 71.7 % (42.0-75.0); Mean Corpuscular HGB CONC 33.8 g/dL (32.0-36.0); Mean Corpuscular Hemoglobin 32.3 pg (27.0-31.0); Mean Corpuscular Volume 95.6 fL (78.0-98.0); Mean Platelet Volume 7.2 fL (7.4-10.4); Platelet Count 252 thou/uL (130-400); Red Blood Cell (RBC) Count 4.63 mill/uL (4.20-5.40); White Blood Cell (WBC) Count 6.8 thou/uL (4.8-10.8)
[2021-02-26 14:10] LABS: ALT (SGPT) 17 U/L (8-55); AST (SGOT) 20 U/L (5-34); Albumin 3.8 g/dL (3.4-4.8); Alkaline Phosphatase 96 U/L (40-110); Anion Gap 11 mmol/L (10-20); BUN (Urea Nitrogen) 27 mg/dL (9.8-20.1); Bilirubin, Total 0.3 mg/dL (0.2-1.2); Calc. Creatinine Clearance 0 mL/min (70-130); Calcium 9.7 mg/dL (7.8-10.44); Carbon Dioxide 24 mmol/L (23-31); Chloride 110 mmol/L (98-107); Globulin 3.6 g/dL (2.4-3.5); Glucose 104 mg/dL (80-115); Lipase 32 U/L (8-78); Potassium 4.3 mmol/L (3.5-5.1); Protein, Total 7.4 g/dL (5.8-8.1); Sodium 141 mmol/L (136-145)
[2021-02-26 16:24] LABS: Bilirubin Negative (Negative); Blood, Urine Negative (Negative); Clarity Clear (Clear); Glucose, Urine (Dipstick) Normal (Negative); Ketone, Urine Negative (Negative); Leukocyte Negative Leu/uL (Negative); Nitrite Negative (Negative); Protein, Urine (Dipstick) Negative (Neg-Trace); Specific Gravity, Urine 1.027 (1.002-1.036); Urobilinogen Normal mg/dL (Less than 2)
[2021-02-26 16:29] LABS: Pregnancy Test - Urine (BHCG) Negative (Negative); Pregu Control Background? CLEAR/WHITE (CLR/WHITE); Pregu Control Bar Appear? YES (CONTROL BAR); Specific Gravity 1.027 (1.002-1.036)
[2021-02-26] MEDS ORDERED: Ondansetron PF 4 MG/2 ML Vial IVP PRN (20:38)
[2021-02-26] MEDS ORDERED: Senokot S 8.6-50 MG TAB PO PRN (20:38)
[2021-02-26] MEDS ORDERED: Bisacodyl 5 MG TAB PO PRN (20:38)
[2021-02-26 23:06] VITALS: BMI 24.3
[2021-02-26] MEDS: Gabapentin 300 MG CAP PO SCH (23:15)
[2021-02-27 07:36] LABS: Anion Gap 12 mmol/L (10-20); BUN (Urea Nitrogen) 30 mg/dL (9.8-20.1); Calc. Creatinine Clearance 58 mL/min (70-130); Calcium 9.9 mg/dL (7.8-10.44); Carbon Dioxide 22 mmol/L (23-31); Chloride 109 mmol/L (98-107); Glucose 92 mg/dL (80-115); Potassium 4.3 mmol/L (3.5-5.1); Sodium 139 mmol/L (136-145)
[2021-02-27] MEDS: Enoxaparin Sodium 30 MG/0.3 ML SYRINGE SC SCH (09:23)
[2021-02-27] MEDS: Gabapentin 300 MG CAP PO SCH ×2 (09:25→20:54)
[2021-02-27] MEDS: HYDROcodone/Acetaminophen 5/325 mg Tablet PO PRN ×2 (09:28→18:24)
[2021-02-27] MEDS: Acetaminophen 325 MG TAB PO PRN ×2 (12:08→23:16)
[2021-02-27] MEDS: Nicotine 14 MG PATCH TD SCH (18:24)
[2021-02-28] MEDS: Enoxaparin Sodium 30 MG/0.3 ML SYRINGE SC SCH (09:31)
[2021-02-28] MEDS: Gabapentin 300 MG CAP PO SCH ×2 (09:31→20:36)
[2021-02-28] MEDS: Acetaminophen 325 MG TAB PO PRN (20:36)
[2021-02-28] MEDS: Nicotine 14 MG PATCH TD SCH (21:48)
[2021-03-01] MEDS: Enoxaparin Sodium 30 MG/0.3 ML SYRINGE SC SCH (09:41)
[2021-03-01] MEDS: HYDROcodone/Acetaminophen 5/325 mg Tablet PO PRN ×3 (09:42→21:06)
[2021-03-01] MEDS: Gabapentin 300 MG CAP PO SCH ×2 (09:42→21:06)
[2021-03-01] MEDS: Acetaminophen 325 MG TAB PO PRN (11:21)
[2021-03-01] MEDS: Nicotine 14 MG PATCH TD SCH (18:56)
[2021-03-02] MEDS: HYDROcodone/Acetaminophen 5/325 mg Tablet PO PRN ×3 (00:44→21:00)
[2021-03-02] MEDS: Gabapentin 300 MG CAP PO SCH ×2 (10:00→21:00)
[2021-03-02] MEDS: Enoxaparin Sodium 30 MG/0.3 ML SYRINGE SC SCH (10:04)
[2021-03-02] MEDS: Nicotine 14 MG PATCH TD SCH (18:09)
[2021-03-03] MEDS: Gabapentin 300 MG CAP PO SCH ×2 (08:33→20:11)
[2021-03-03] MEDS: Enoxaparin Sodium 30 MG/0.3 ML SYRINGE SC SCH (08:34)
[2021-03-04] MEDS: Gabapentin 300 MG CAP PO SCH ×2 (08:33→20:26)
[2021-03-04] MEDS: Enoxaparin Sodium 30 MG/0.3 ML SYRINGE SC SCH (08:34)
[2021-03-04] MEDS: Acetaminophen 325 MG TAB PO PRN (10:09)
[2021-03-05] MEDS: Gabapentin 300 MG CAP PO SCH ×2 (09:48→19:56)
[2021-03-05] MEDS: Enoxaparin Sodium 30 MG/0.3 ML SYRINGE SC SCH (09:50)
[2021-03-05] MEDS: Acetaminophen 325 MG TAB PO PRN ×2 (09:50→14:43)
[2021-03-06] MEDS: Gabapentin 300 MG CAP PO SCH (09:03)
[2021-03-06] MEDS: Acetaminophen 325 MG TAB PO PRN (09:03)
[2021-03-06] MEDS: Enoxaparin Sodium 30 MG/0.3 ML SYRINGE SC SCH (09:04)
[2021-03-06 11:53] VITALS: BP 99/69; TEMP 97.6
== END 2021-03-06 14:57 | DRG 392 ==
LOC: ERS 12:42 → SJJU 19:35 → OBSVTOIN 03-05 19:42
PROVIDERS: ADMIT Internal Medicine; ATTEND Internal Medicine
DX: K52.9 Noninfective gastroenteritis and colitis, unspecified (principal); K21.9 Gastro-esophageal reflux disease without esophagitis; G62.9 Polyneuropathy, unspecified; F03.90 Unspecified dementia, unspecified severity, without behavioral disturbance, psychotic disturbance, mood disturbance, and anxiety; Z20.822 Contact with and (suspected) exposure to COVID-19; F17.210 Nicotine dependence, cigarettes, uncomplicated; R29.6 Repeated falls; M54.5 Low back pain; G89.4 Chronic pain syndrome; Z79.899 Other long term (current) drug therapy; Z91.81 History of falling; Z88.8 Allergy status to other drugs, medicaments and biological substances; Z87.11 Personal history of peptic ulcer disease; Z98.1 Arthrodesis status; Z98.890 Other specified postprocedural states; Z71.6 Tobacco abuse counseling; Z90.710 Acquired absence of both cervix and uterus
CPT/HCPCS: 36415; 51701; 74177; 80048; 80053; 81003; 81025; 83690; 85025; 90471; 90732; 96372; G0009; G0378; J1650; Q9967

== ENCOUNTER 2022-12-04 09:24 | Emergency (ER) | payer OTHER, MEDICAID ==
[2022-12-04] MEDS ORDERED: diphenhydrAMINE 50 MG/ML VIAL ONE (10:51)
== END 2022-12-04 17:16 | disposition home or self-care (01) ==
LOC: ERS 09:24
DX: M25.572 Pain in left ankle and joints of left foot (principal); K21.9 Gastro-esophageal reflux disease without esophagitis; F17.210 Nicotine dependence, cigarettes, uncomplicated; Z86.73 Personal history of transient ischemic attack (TIA), and cerebral infarction without residual deficits
CPT/HCPCS: 96374; J1200